=== PATIENT | male | born 1995 | race Caucasian/White ===

== ENCOUNTER 2019-10-09 20:58 | Emergency (ER) | payer OTHER ==
[~2019-10-09] VITALS: Ht 175 cm; Wt 63.6 kg
[~2019-10-09 20:58] MED LIST: OMEP20TA7 PO
--- NOTE | 2019-10-09 22:05 | ED Upper Extremity ---
General Chief Complaint: Laceration Stated Complaint: LACERATION FINGER Nursing Triage Note: Pt ambulates to [facility] with c/o lac to right pointer finger. Pt states he was cutting open a bag of sauce when he cut himself. Dressing in place and bleeding controlled on arrival. Nursing Sepsis Screen: No Definite Risk History of Present Illness Date Seen by Provider: Oct 09, 2019 Time Seen by Provider: 21:45 Initial Comments 24-year-old male presents for a laceration to his right second finger. He was cutting open a bag of sauce at work when he injured his finger. He works at [employer]. He denies any other injuries and last had a tetanus shot 4 years ago. Onset: just prior to arrival Pain/Injury Location: right 2nd finger Method of Injury: incised Allergies and Home Medications Allergies Coded Allergies: Penicillins (Verified Allergy, Unknown, 03/08/16) Home Medications Omeprazole 20 Mg Tablet.dr, 20 MG PO BID Prescribed by: CATHI SENA on 03/08/16 2300 Patient Home Medication List Home Medication List Reviewed: Yes Review of Systems Constitutional: no symptoms reported, see HPI Skin: see HPI, other (laceration right index finger) Past Lqtmyzh-Kcnshy-Tpysfm Hx Past Med/Social Hx: Reviewed Nursing Past Med/Soc Hx Patient Social History Alcohol Use: Denies Use Recreational Drug Use: Yes Drug of Choice: THC Smoking Status: Current Everyday Smoker Type Used: Cigarettes 2nd Hand Smoke Exposure: Yes Recent Foreign Travel: No Contact w/Someone Who Travel: No Recent Infectious Disease Expo: No Physical Abuse: No Sexual Abuse: No Mistreated: No Past Medical History Surgeries: Yes Appendectomy Respiratory: No Cardiac: No Neurological: No Reproductive Disorders: No Gastrointestinal: No Musculoskeletal: No Endocrine: No Cancer: No Psychosocial: No Integumentary: No Blood Disorders: No Physical Exam Vital Signs Vital Signs - First Documented 10/09/19 21:41 Temp 36.5 Pulse 67 Resp 20 B/P (MAP) 122/55 (77) Pulse Ox 98 O2 Delivery Room Air Capillary Refill : Less Than 3 Seconds Height, Weight, BMI Height: 5'10" Weight: 140lbs. oz. [id number]; 20.00 BMI Method:Stated General Appearance: WD/WN, no apparent distress Cardiovascular: normal peripheral pulses, regular rate, rhythm Respiratory: chest non-tender Hand: normal ROM (resisted flexion and extension is V/V), Right, laceration (second finger), soft tissue tenderness Neurologic/Tendon: normal sensation, normal motor functions, normal tendon functions Neurologic/Psychiatric: no motor/sensory deficits, alert, normal mood/affect, oriented x 3 Procedures/Interventions Wound Location: Upper Extremities (right second finger) Wound Length (cm): 1.5 Wound's Depth, Shape: superficial Wound Explored: clean Irrigated w/ Saline (ccs): 500 Anesthesia: 1% Lidocaine Volume Anesthetic (ccs): 2 Suture: Ethlion Suture Size: 5-0 Number of Sutures: 3 Sterile Dressing Applied?: Yes Progress Wound well approximated, no active bleeding, sterile bulky dressing applied. Patient tolerated well. Progress/Results/Core Measures Results/Orders Vital Signs/I&O 10/09/19 21:41 Temp 36.5 Pulse 67 Resp 20 B/P (MAP) 122/55 (77) Pulse Ox 98 O2 Delivery Room Air Blood Pressure Mean: 77 Departure Impression Primary Impression: Laceration of right index finger w/o foreign body w/o damage to nail Qualified Codes: S61.210A - Laceration without foreign body of right index finger without damage to nail, initial encounter Disposition: HOME, SELF-CARE Condition: Improved Departure-Patient Inst. Decision time for Depature: 21:50 Referrals: NO,LOCAL PHYSICIAN (PCP/Family) Primary Care Physician Patient Instructions: Laceration Repair With Stitches (DC) Add. Discharge Instructions: Keep wound clean and dry for the first 24 hours. After 24 hours you may shower, but do not submerge the wound in standing water (bathtub, seeing, pool or hot tub) After showering clean the wound with peroxide and apply Band-Aid or dressing. Return to emergency department in 7-10 days for suture removal. Keep wound covered with a glove when at work or when it could get wet. Return to the emergency department for increased pain, signs of infection (redness, discolored drainage, increased swelling, or pain). You may alternate between Tylenol 650 mg and ibuprofen 600 mg every 4 hours for pain. Ice and elevate right index finger for throbbing or pain. All discharge instructions reviewed with patient and/or family. Voiced understanding. Work/School Note: Work Release Form Date Seen in the Emergency Department: Oct 09, 2019 Return to Work: Oct 10, 2019 Other Restrictions Listed Below: Keep right index finger dry and wear gloves, as needed. YANA GARCIA Oct 09, 2019 22:05
[2019-10-09 22:26] VITALS: BP 122/55
== END 2019-10-09 22:28 | disposition home or self-care (01) ==
LOC: EDUNIT# 20:58 → ER 20:59
DX: S61.210A Laceration without foreign body of right index finger without damage to nail, initial encounter (principal); F17.210 Nicotine dependence, cigarettes, uncomplicated; Z90.49 Acquired absence of other specified parts of digestive tract; Z88.0 Allergy status to penicillin; W26.8XXA Contact with other sharp object(s), not elsewhere classified, initial encounter; Y92.59 Other trade areas as the place of occurrence of the external cause